=== PATIENT | male | born 1955 | race Caucasian/White ===

== ENCOUNTER 2019-11-27 08:24 | Day surgery (SDC) | payer OTHER, SELFPAY ==
[2019-11-20 12:25] VITALS: BMI 24.5
--- NOTE | 2019-11-23 14:06 | HO.ANESPROP2 ---
Documented by User: Orin Velasquez 11/23/19 14:08 HPI - Anesthesia Eval Consult details Narrative: 64yo M for colonoscopy [facility] Past Medical History Medical History HTN (hypertension) Surgical History Surgical History History of appendectomy Hx of tonsillectomy Social History Social History Smoking Status: Former smoker Years Smoked: 2 Smoked in Last 30 Days: No Smoking Quit Date: age 19 Use of substances other than those prescribed or required for medical reasons: No Advance Directives Information Provided: No Recently lost weight without trying: No Meds Allergies Allergy/AdvReac Type Severity Reaction Status Date / Time No Known Allergies Allergy Verified 11/20/19 12:28 Home Medications Medication Instructions Recorded Confirmed Type lisinopril 20 mg PO BEDTIME 11/20/19 11/27/19 History Exam Exam Date and Time: November 23, 2019 1406 Height,Weight and Vital Signs: Height 5 ft 6.5 in Weight 69.853 kg Pertinent Lab Results Pertinent Lab Results: Laboratory Tests 11/18/19 10:50 Sodium 141 Potassium 4.3 Chloride 104 Bicarbonate 30 H Anion Gap 11 L BUN 16 Creatinine 0.79 Est GFR (Non-Af Amer) > 60 Assessment and Plan Assessment Anesthesia Assessment: Chart Reviewed Documented by User: Xiomara Hernandez 11/27/19 10:02 [facility] Past Medical History Medical History HTN (hypertension) Family History Family history of problems with anesthesia: No Surgical History Surgical History History of appendectomy Hx of tonsillectomy History of Problems with Anesthesia: No ( Loopy last time after colonoscopy 10 yrs ago) Social History Social History Smoking Status: Former smoker Years Smoked: 2 Smoked in Last 30 Days: No Smoking Quit Date: age 19 Use of substances other than those prescribed or required for medical reasons: No Advance Directives Information Provided: No Recently lost weight without trying: No Meds Allergies Allergy/AdvReac Type Severity Reaction Status Date / Time No Known Allergies Allergy Verified 11/20/19 12:28 Home Medications Medication Instructions Recorded Confirmed Type lisinopril 20 mg PO BEDTIME 11/20/19 11/27/19 History Exam Height,Weight and Vital Signs: Vital Signs Temp Pulse Resp BP Pulse Ox 11/27/19 08:54 98.2 F 82 18 185/96 H 96 Airway Mallampati Class: II TM Dist: >3cm Neck ROM: Full Heart: RRR Lungs: CTAB Assessment and Plan Assessment Anesthesia Assessment: Anesthesia Plan Discussed, Consent Obtained and Chart Reviewed Final Anesthetic Review NPO: Yes ASA Class: II Final Preanesthetic Review: No Changes in Pt Med Stat, Meds & Allergies Reviewed, Consent Obtained/Reviewed, Med/Surg/Anes Hx Reviewed and Anes Risks/Benef Reviewed Patient Risk: Low Procedure Risk: Low Anesthetic Plan Anesthetic Plan: MAC: Disposition: Standard PACU
[2019-11-27 08:54] VITALS: BP 185/96; PULSE 82; RESP 18; TEMP 36.8; O2SAT 96
--- NOTE | 2019-11-27 09:46 | MHC.SHP ---
Pre-Procedural Eval Section B Chief Complaint: SCREENING Details of Present Illness: screening Relevant Family History (Specify if Yes): No Relevant Social History: None Present Medications: see Short Stay Collaborative assessment Medical History: No relevant PMH History of Previous Operations: No relevant previous surgery Allergies: Allergies Allergy/AdvReac Type Severity Reaction Status Date / Time No Known Allergies Allergy Verified 11/20/19 12:28 Review of Systems Sugical H&P ROS: Negative: Constitution, Cardiovascular, Respiratory, Neurological, Psychiatric, Hem-Onc, Allergic/Immunologic, Gastrointestinal, Genitourinary, Musculoskeletal, Integumentary, Endocrine and Eyes/Ears/Nose/Throat Exam Surgical H&P Exam: Normal: HEENT, Normal: Heart, Normal: Lungs, Normal: Extremities, Normal: Abdomen, Normal: Skin and Normal: Neurological Plan Diagnosis/Plan: Unchanged Patient has been examined and remains a candidate for the planned procedure
--- NOTE | 2019-11-27 10:09 | PM.OP ---
Brief Operative Note Date of procedure: 11/27/19 Pre-op diagnosis: screening Post-op diagnosis: same Procedure: colonoscopy Surgeon: Moreno Beverly Anesthesia: MAC Estimated blood loss (mL): 0 Pathology: none sent Condition: stable Disposition: PACU
[2019-11-27 10:12] VITALS: BP 124/75; PULSE 67; RESP 18; TEMP 36.6; O2SAT 98
[2019-11-27] MEDS: Lactated Ringers 1,000 ML 100 ML IVCONT (10:12)
[2019-11-27 10:27] VITALS: BP 151/99; PULSE 71; RESP 13; O2SAT 97
--- NOTE | 2019-11-27 10:30 | OP_ITS ---
SURGEON: Moreno Beverly MD INDICATIONS: Colon cancer screening. PREOPERATIVE DIAGNOSIS: POSTOPERATIVE DIAGNOSIS: PROCEDURE PERFORMED: Colonoscopy to the terminal ileum. ESTIMATED BLOOD LOSS: COMPLICATIONS: ANESTHESIA: ASSISTANTS: SPECIMENS: MEDICATIONS: Monitored anesthesia care. DESCRIPTION OF PROCEDURE: History and physical performed. The risks and benefits of the procedure were explained to the patient. Informed consent was obtained. The patient was placed in left lateral decubitus position. A digital rectal exam was performed and was found to be normal. The Olympus pediatric video colonoscope was introduced into the rectum and advanced to the cecum without difficulty. The cecum was identified by transillumination, palpation, and identification of ileocecal valve. Examination was performed and the scope was removed. He tolerated the procedure well and was taken to recovery area in stable condition. FINDINGS: The terminal ileum was normal. The visualized colonic mucosa was normal. The quality of the prep was good. No polyps were identified. There was mild sigmoid diverticulosis. Retroflexed examination showed small internal hemorrhoids. IMPRESSION: Negative screening colonoscopy. RECOMMENDATIONS: 1. Follow up as needed. 2. Repeat colonoscopy is recommended in 10 years for average risk individuals. MD SID Vincent/LUIS / [id number]
[2019-11-27 10:40] VITALS: BP 137/85; PULSE 66; RESP 18; TEMP 36.6; O2SAT 98
== END 2019-11-27 11:27 | disposition home or self-care (01) ==
PROVIDERS: Visit Provider Internal Medicine Gastroenterology
PROC: 0DJD8ZZ Inspection of Lower Intestinal Tract, Via Natural or Artificial Opening Endoscopic (ICD-10-PCS; CPT 45378; principal; 2019-11-27 09:50)
DX: Z12.11 Encounter for screening for malignant neoplasm of colon (principal); K57.30 Diverticulosis of large intestine without perforation or abscess without bleeding; K64.8 Other hemorrhoids; I10 Essential (primary) hypertension; J30.2 Other seasonal allergic rhinitis; Z87.891 Personal history of nicotine dependence; Z79.899 Other long term (current) drug therapy
CPT/HCPCS: 45378

== ENCOUNTER 2020-07-20 10:31 | Outpatient (REF) | payer OTHER, SELFPAY ==
[2020-07-20 14:03] LABS: Anion Gap 13 (12-20); Blood Urea Nitrogen 13 mg/dL (9-16); Carbon Dioxide 27 mmol/L (22-29); Chloride 105 mmol/L (96-108); Estimated Glomerular Filt Rate > 60; Potassium 4.3 mmol/L (3.3-5.1); Sodium 141 mmol/L (135-145)
== END 2020-07-20 10:32 | disposition home or self-care (01) ==
LOC: HO.10HDL 10:31
PROVIDERS: Visit Provider Family Medicine
DX: I10 Essential (primary) hypertension (principal)
CPT/HCPCS: 36415; 80051; 82565; 84520

== ENCOUNTER 2021-04-05 12:12 | Outpatient (REF) | payer OTHER, SELFPAY ==
[2021-04-05 14:20] LABS: Anion Gap 14 (12-20); Blood Urea Nitrogen 15 mg/dL (9-16); Carbon Dioxide 26 mmol/L (22-29); Chloride 104 mmol/L (96-108); Estimated Glomerular Filt Rate > 60; Potassium 4.3 mmol/L (3.3-5.1); Sodium 140 mmol/L (135-145)
== END 2021-04-05 12:13 | disposition home or self-care (01) ==
LOC: HO.10HDL 12:12
PROVIDERS: Visit Provider Family Medicine
DX: I10 Essential (primary) hypertension (principal)
CPT/HCPCS: 36415; 80051; 82565; 84520

== ENCOUNTER 2021-12-20 10:50 | Outpatient (REF) | payer OTHER, SELFPAY ==
[2021-12-20 14:00] LABS: Anion Gap 12 (12-20); Blood Urea Nitrogen 16 mg/dL (9-16); Carbon Dioxide 32 mmol/L (22-29); Chloride 102 mmol/L (96-108); Estimated Glomerular Filt Rate > 60; Potassium 5.1 mmol/L (3.3-5.1); Sodium 141 mmol/L (135-145)
== END 2021-12-20 10:51 | disposition home or self-care (01) ==
LOC: HO.10HDL 10:50
PROVIDERS: Visit Provider Family Medicine
DX: I10 Essential (primary) hypertension (principal)
CPT/HCPCS: 36415; 80051; 82565; 84520

== ENCOUNTER 2022-09-10 09:06 | Outpatient (REF) | payer OTHER, SELFPAY ==
[2022-09-10 10:53] LABS: Anion Gap 9 (12-20); Blood Urea Nitrogen 11 mg/dL (9-16); Carbon Dioxide 30 mmol/L (22-29); Chloride 106 mmol/L (96-108); Estimated Glomerular Filt Rate > 60; Potassium 4.1 mmol/L (3.3-5.1); Sodium 141 mmol/L (135-145)
== END 2022-09-10 09:07 | disposition home or self-care (01) ==
LOC: HO.10HDL 09:06
PROVIDERS: Visit Provider Family Medicine
DX: I10 Essential (primary) hypertension (principal)
CPT/HCPCS: 36415; 80051; 82565; 84520

== ENCOUNTER 2022-09-12 11:06 | Outpatient (REF) | payer OTHER, SELFPAY ==
--- NOTE | ~2022-09-12 | XR_ITS ---
EXAMINATION: XR LUMBOSACRAL SPINE CLINICAL INFORMATION: Reason for Exam LOW BACK PAIN COMPARISON: None TECHNIQUE: 3 views of the lumbar spine FINDINGS: 5 nonrib-bearing lumbar-type vertebral bodies. Vertebral body heights are maintained. Levoconvex curvature of the lumbar spine. 1 anterolisthesis of L4 on L5. Mild multilevel degenerative disc disease with loss of disc space height with moderate lower lumbosacral facet arthropathy. Surgical clips in the pelvis. XR/XR lumbar spine 2-3V IMPRESSION: 1. Levoconvex curvature of the lumbar spine. 1 anterolisthesis of L4 on L5. 2. Mild multilevel degenerative disc disease with loss of disc space height with moderate lower lumbosacral facet arthropathy.
== END 2022-09-12 11:07 | disposition home or self-care (01) ==
LOC: HO.XRAY 11:06
PROVIDERS: PCP Family Medicine; Visit Provider Family Medicine
DX: M54.50 Low back pain, unspecified (principal)
CPT/HCPCS: 72100

== ENCOUNTER 2023-04-18 09:45 | Outpatient (REF) | payer OTHER, SELFPAY ==
[2023-04-18 11:29] LABS: Anion Gap 12 (12-20); Blood Urea Nitrogen 14 mg/dL (9-16); Carbon Dioxide 31 mmol/L (22-29); Chloride 106 mmol/L (96-108); Estimated Glomerular Filt Rate > 60; Potassium 4.4 mmol/L (3.3-5.1); Sodium 145 mmol/L (135-145)
[2023-04-18 11:36] LABS: Prostate Specific Antigen Scr 0.55 ng/mL (<0.05-4.0)
== END 2023-04-18 09:46 | disposition home or self-care (01) ==
LOC: HO.10HDL 09:45
PROVIDERS: Visit Provider Family Medicine
DX: Z12.5 Encounter for screening for malignant neoplasm of prostate (principal); I10 Essential (primary) hypertension; N40.0 Benign prostatic hyperplasia without lower urinary tract symptoms; M19.90 Unspecified osteoarthritis, unspecified site
CPT/HCPCS: 36415; 80051; 82565; 84153; 84520

== ENCOUNTER 2024-05-18 10:19 | Outpatient (REF) | payer BC, SELFPAY ==
[2024-05-18 11:34] LABS: Anion Gap 11 (12-20); Blood Urea Nitrogen 13 mg/dL (9-16); Carbon Dioxide 31 mmol/L (22-29); Chloride 105 mmol/L (96-108); Estimated Glomerular Filt Rate > 60; Potassium 5.3 mmol/L (3.3-5.1); Sodium 142 mmol/L (135-145)
== END 2024-05-18 10:20 | disposition home or self-care (01) ==
LOC: HO.10HDL 10:19
PROVIDERS: Visit Provider Family Medicine
DX: I10 Essential (primary) hypertension (principal)
CPT/HCPCS: 36415; 80051; 82565; 84520

== ENCOUNTER 2024-11-04 11:18 | Outpatient (AMB) | payer BC, SELFPAY ==
--- NOTE | 2024-11-04 08:39 | MHC.PC.OV ---
Vital Signs 11/04/24 11:23 Height 5 ft 6.5 in Weight 157 lb BMI 25.0 BP 136/82 Blood Pressure Location Lt brachial Position Sitting Pulse 76 Pulse Source Pulse Oximeter Pulse Oximetry (%) 97 Oxygen Delivery Method Room Air Intake Visit Reasons: 4 MO F/UP - JONATHON PT - see comments Visual Merchandising Coordinator Required: No Accompanied by: Self / Same As Patient Allergies No Known Allergies Allergy (Verified 11/04/24 08:39) Medication List - Last Reconciled 11/04/24 by THA Garcia amlodipine 2.5 mg PO BEDTIME aspirin 81 mg PO DAILY lisinopril 20 mg PO BEDTIME Tobacco use date assessed: 11/04/24 Fall risk assessment: No Falls in past year Last assessed Fall Risk: 11/04/24 Dental Screening Dental Screen Date: 11/04/24 Did you have a dental visit in the last 12 months?: Yes Did you have a dental problem in the last 6 months where you did not have access to dental care?: No HPI HPI Comments History of Present Illness Details The patient is a 69-year-old male with HTN presenting for management of hypertension and follow-up on previous medical conditions. He is a Jehov[employer] Witness. The patient has a history of essential hypertension, managed with lisinopril 20 mg daily and amlodipine 2.5 mg daily. His BP today was 136/82. He was previously advised to monitor his blood pressure closely, especially before dental procedures, due to concerns about elevated readings. The patient reports a history of degenerative arthritis, which began following a back injury at the age of 27. He experiences occasional exacerbations of pain, particularly with physical exertion, such as moving heavy objects. X-rays taken a year ago confirmed the presence of arthritis, and he manages symptoms with stretching exercises. The patient experienced hearing loss, which was attributed to wax impaction, and was resolved after removal of the wax. There was a concern about a possible eardrum perforation, but it healed spontaneously. In September, the patient contracted COVID-19, experiencing mild symptoms such as a runny nose and sore throat. He tested positive on October 01 and negative by October 11, with no lingering symptoms. The patient also reports seasonal allergies, which he manages with saline nasal rinses. He avoids red meat, follows a predominantly vegetarian diet, and occasionally consumes fish and chicken. He had labs in April which did show potassium of 5.3. He had a colonoscopy in 2019 with follow up in 10 years. He has never had screening for AAA. Patient was informed and verbally consented to the use of an ambient scribe for clinic note documentation during this visit. [facility] Medical History HTN (hypertension) Surgical History History of colonoscopy (~11/27/19) Hx of tonsillectomy History of appendectomy Family History (Updated 11/04/24 @ 11:32 by Franchesca Boggs MA) Mother No problems noted. Father No problems noted. Social History Housing: House Patient Tobacco Use Status: Former Tobacco user Years Smoked: 2 e-Cigarette/Vaping Use: Former Use service: No Current occupational status: retired Cognitive needs: No Hearing needs: No Vision needs: Yes (reading glasses) Questionnaire PHQ-9 Over the last 2 weeks, how often have you been bothered by any of the following problems? 1. Little interest or pleasure in doing things: not at all 2. Feeling down, depressed, or hopeless: not at all 3. Trouble falling or staying asleep, or sleeping too much: not at all 4. Feeling tired or having little energy: not at all 5. Poor appetite or overeating: not at all 6. Feeling bad about yourself - or that you are a failure or have let yourself or your family down: not at all 7. Trouble concentrating on things, such as reading the newspaper or watching television: not at all 8. Moving or speaking so slowly that other people could have noticed. Or the opposite - being so fidgety or restless that you have been moving around a lot more than usual: not at all 9. Thoughts that you would be better off or of hurting yourself in some way: not at all Total score: 0 Depression Screening Interpretation: Negative Depression Screening Done: Yes Source: Developed by Drs. Nathanael Infante, Isaura Rosas, Angel Etienne and colleagues, with an educational kasia from [employer]. Thrive Questionnaire Date Thrive assessed: 11/04/24 I am a: Patient Within the past 12 months, did the food you bought not last and you didn't have the money to get more?: Never true Within the past 12 months, did you worry whether your food would run out before you got money to buy more?: Never true Do you have trouble paying for medicines?: No Do you have trouble getting transportation to medical appointments?: No Do you have trouble paying your heating and electricity bill?: No Do you have trouble taking care of your child, family member or friend?: No Do you have trouble with day-to-day activities such as bathing, preparing meals, shopping, managing finances, etc.?: No Are you currently unemployed and looking for a job?: No Are you interested in more education?: No THRIVE Score: 0 AUDIT C Alcohol Use Questionnaire (AUDIT-C) 1. How often do you have a drink containing alcohol?: Monthly or less 2. How many drinks containing alcohol do you have on a typical day when you are drinking?: 1 or 2 3. How often do you have six or more drinks on one occasion?: Less than monthly Total Score: 2 CATHI-7 AMB Questionnaire CATHI-7 Date CATHI - 7 assessed: 11/04/24 Feeling nervous, anxious, or on edge: 0 = Not at all Not being able to stop or control worryin = Not at all Worrying too much about different things: 0 = Not at all Trouble relaxin = Not at all Being so restless that it is hard to sit still: 0 = Not at all Becoming easily annoyed or irritable: 0 = Not at all Feeling afraid as if something awful might happen: 0 = Not at all Total CATHI-7 score (0-4 normal; 5-9 mild; 10-14 moderate; 15-21 severe): 0 Source: Developed by Drs. Nathanael Infante, Isaura Rosas, Angel Etienne and colleagues, with an educational kasia from [employer]. Review of Systems Const Details: CONSTITUTIONAL Negative HEAD/NECK Negative EAR/NOSE/MOUTH/THROAT Reports resolved hearing loss due to wax impaction Reports seasonal allergies managed with saline rinses RESPIRATORY Denies dyspnea, cough, or wheezing CARDIOVASCULAR Denies chest pain, palpitations, or syncope GASTROINTESTINAL Denies constipation, diarrhea, or heartburn MUSCULOSKELETAL Reports occasional back pain due to degenerative arthritis NEUROLOGICAL Denies dizziness or headaches PSYCHIATRIC Negative Physical exam (Primary Care) Vital Signs: Last Vital Signs Pulse 76 11/04/24 11:23 BP 136/82 11/04/24 11:23 Pulse Ox 97 11/04/24 11:23 Oxygen Delivery Method Room Air 11/04/24 11:23 BMI result Body Mass Index 25.0 GENERAL Well developed, Well nourished, in no apparent distress HEENT Head-Normocephalic Eyes- PERRLA, EOMI, Conjuctiva clear, lids WNL Ears- Canals clear, TMs WNL Mouth/Throat-No lesions, no erythema, no exudate Neck- Supple, No lymphadenopathy, thyroid WNL RESPIRATORY Normal I:E, Clear to auscultation CARDIOVASCULAR Regular, rate and rhythm, No murmurs or rubs GASTROINTESTINAL Soft, nontender, normal bowel sounds, no masses MUSCULOSKELETAL Back- nontender Joints- no pain swelling or deformity NEUROLOGICAL Gait normal PSYCHIATRIC Oriented to person, place and time Mood and affect WNL Appearance WNL Speech WNL Thought processes WNL Tobacco/Smoking Status: Tobacco use Status Tobacco use date assessed 11/04/24 11/04/24 08:40 Patient Tobacco Use Status Former Tobacco user 11/04/24 11:32 e-Cigarette/Vaping Use Former Use 11/04/24 11:32 PHQ-9: PHQ-9 Score PHQ-9: Total score 0 11/04/24 11:32 Depression Screening Interpretation: Negative Thrive Assessment: Date of Thrive Assessment Date Thrive assessed 11/04/24 11/04/24 08:40 Coding Level of Care Code New Pt New Pt Level 4 (75894) Patient Type New Diagnoses HTN (hypertension) I10 Health care maintenance Z00.00 Time Spent (min) 35 Comment time spent on chart review, medication reconciliation, H&P, patient education, orders Assessment & Plan Assessment & Plan (1) HTN (hypertension): Comment: BP today was 136/82. Code(s): I10 - Essential (primary) hypertension Category: Medical Plan: The patient will continue with lisinopril 20 mg and amlodipine 2.5 mg daily for blood pressure management. Blood pressure monitoring is advised, especially prior to dental procedures. A follow-up appointment is scheduled in four months to reassess blood pressure control and medication efficacy. (2) Health care maintenance: Code(s): Z00.00 - Encounter for general adult medical examination without abnormal findings Category: Medical Plan: - Colonoscopy performed in 2019, next due in 10 years - Annual eye examination - Annual flu vaccination - Will request AAA screening Plan I discussed with the patient the importance of continuing his current antihypertensive regimen and monitoring blood pressure, especially before dental procedures. We reviewed the management of his degenerative arthritis, emphasizing the need for regular stretching and avoiding heavy lifting. The patient was informed about the resolution of his hearing loss after wax removal and the recommendation for regular ear hygiene. We discussed his recent COVID-19 infection and the plan to receive a booster shot in two months. Preventative care measures, including scheduling a follow-up colonoscopy in 10 years and maintaining annual eye exams and flu vaccinations, were also discussed. Orders: Orders Comprehensive Met. Panel Today I10 - Essential (primary) hypertension, Z00.00 - Encounter for general adult medical examination without abnormal findings, Z79.899 - Other usp (current) drug therapy US abdominal aortic aneurysm Today I10 - Essential (primary) hypertension, Z13.6 - Encounter for screening for cardiovascular disorders Complete Blood Count no Diff Today I10 - Essential (primary) hypertension, Z00.00 - Encounter for general adult medical examination without abnormal findings, Z79.899 - Other arcade games mechanic (current) drug therapy Lipid Panel Today I10 - Essential (primary) hypertension, Z00.00 - Encounter for general adult medical examination without abnormal findings, Z13.220 - Encounter for screening for lipoid disorders TSH reflex Free T4 Today I10 - Essential (primary) hypertension, Z00.00 - Encounter for general adult medical examination without abnormal findings Medications: New amlodipine 2.5 mg PO BEDTIME 90 tabs 2RF for blood pressure lisinopril 20 mg PO BEDTIME 90 tabs 2RF for blood pressure Patient Instructions: - Continue taking lisinopril and amlodipine as prescribed. - Monitor blood pressure regularly, especially before dental visits. - Perform regular stretching exercises to manage arthritis symptoms. - Patient to have labs before follow up. - Schedule a COVID-19 booster shot two months after recovery. - Schedule and attend annual eye exams and flu vaccinations. - Follow a predominantly vegetarian diet and avoid heavy lifting.
[2024-11-04 11:23] VITALS: BP 136/82; PULSE 76; O2SAT 97; BMI 25.0
--- OUTSIDE RECORDS SUMMARY | 2024-11-04 14:33 | XMS_ITS | Patient Health Record ---
Author Organization [facility] Address [address] [place] [address] Care Team Providers Care Licensed Certified Orthotist Name Role Phone Austyn (RETIRED) Foster POLO Primary Care Provider Unavailable Moreno Beverly Jr Unavailable Allergies Allergen (clinical drug ingredient) Drug/Non Drug Allergy documented on EMR Reaction Allergy Type Onset Date Status Seasonal Allergies (uncoded) Unknown Allergy Active Reason For Referral No Information Medications Medication SIG (Take, Route, Frequency, Duration) Notes Start Date End Date Status Lisinopril 20 MG TAKE 1 TABLET BY ONCE A DAY Oral for 90 Active MiraLax (colon prep) 8.3 ounce ((238) grams mixed with Gatorade or Crystal Light orally begin at 5:00 p.m. the day before the procedure for 1 day 09/16/2019 Active Immunizations Vaccine Route Administration Date Status Comme nts Influenza Unknown 12/22/2018 Administered Social History Tobacco Use: Social History Observation Description Date Details (start date - stop date) Former Smoker NA - NA Tobacco Use/Smoking Question Answer Notes Patient is a former smoker When did you start smoking? 14 years old When did you stop smoking? 33 years ago How long has it been since you last smoked? > 10 years Alcohol Screen Question Answer Notes Did you have a drink containing alcohol in the p ast year? No Points 0 Interpretation Negative Problems Problem Type SNOMED Code ICD Code Onset Dates Problem Status W/U Status Risk Notes Problem 675411651 Colon cancer screening (Z12.11) Active confirmed Problem 361865485 Encounter for other preprocedural examination (Z01.818) Active confirmed Plan Of Treatment Future Test Test Name Order Date COLONOSCOPY 09/16/2019 Insurance Providers Payer Name Payer Address Payer Phone Subscriber Number Group Number Insured Name Patient Relationship to Insured Coverage Start Date Coverage End Date [facility] [address] [facility] [place] [place] [phone] [id number] PAT FREDERICK Self - patient is the insured Medical (General) History Medical History History ICD Code hypertension Surgical History Surgery Date(Month/Year) appendectomy Left ear operation for cleaning tonsillectomy
== END 2024-11-04 11:56 | disposition home or self-care (01) ==
LOC: HO.HMCHD 11:19
PROVIDERS: PCP Family Medicine; Visit Provider Physician Assistant Medical
DX: I10 Essential (primary) hypertension (principal); Z00.00 Encounter for general adult medical examination without abnormal findings